=== PATIENT | male | born 1980 | race Caucasian/White ===

== ENCOUNTER 2017-04-12 23:40 | Emergency (ER) | payer OTHER ==
[~2017-04-12] VITALS: Wt 92.5 kg
[2017-04-13] MEDS ORDERED: metroNIDAZOLE 500 MG/NS (PMX) 100 ML IVPB ONE (01:30)
[2017-04-13] MEDS ORDERED: CEFTRIAXONE 1 GM/50 ML (PMX) 50 ML IVPB ONE (01:30)
[2017-04-13] MEDS ORDERED: SOD CHLORIDE 0.9% 1,000 ML IV ONE (01:30)
[2017-04-13] MEDS ORDERED: NPH10OT RIGHT EAR (01:44)
--- NOTE | 2017-04-13 01:48 | ERD ---
ER Documentation Chief Complaint Date/Time DATE: 04/13/17 TIME: 01:46 Chief Complaint Right ear pain x3 days HPI This 36-year-old male presents the emergency room for right ear pain 3 days. He is Q-tips on his ears and believes he may have gotten swimmer's ear from having a retained in the shower. He has no decreased hearing. No fevers. He is a healthy man otherwise. ROS All systems reviewed and are negative except as per history of present illness. Medications Home Meds Active Scripts Neomycin/Polymyxin/Hydrocort* (Cortisporin* Otic) 10 Ml Susp, 4 DROP RIGHT EAR QID for 7 Days, EA Prov:TUAN WADE DO 04/13/17 Allergies Allergies: Coded Allergies: No Known Allergy (Unverified , 04/13/17) PMhx/Soc Medical and Surgical Hx: pt denies Medical Hx, pt denies Surgical Hx History of Surgery: No Anesthesia Reaction: No Hx Neurological Disorder: No Hx Respiratory Disorders: No Hx Cardiac Disorders: No Hx Psychiatric Problems: No Hx Miscellaneous Medical Probl: No Hx Alcohol Use: No Hx Substance Use: No Hx Tobacco Use: No Physical Exam Vitals Vital Signs Date Time Temp Pulse Resp B/P Pulse Ox O2 Delivery O2 Flow Rate FiO2 04/13/17 00:09 98.0 74 20 126/75 96 Physical Exam Const: [] No distress Head: Atraumatic Eyes: Normal Conjunctiva ENT: Normal External Ears, Nose and Mouth. Left impediment within normal limits, right tympanic membrane with slight yellowish fluffy flaky material of the ear canal consistent with otitis externa. Results 24 hrs Current Medications Medications (Trade) Dose Ordered Sig/Marquise Route PRN Reason Start Time Stop Time Status Last Admin Dose Admin Sodium Chloride 1,000 ml @ 1,000 mls/hr Q1H ONCE IV 04/13/17 01:30 04/13/17 02:29 Ceftriaxone Sodium 50 ml @ 100 mls/hr ONCE ONCE IVPB 04/13/17 01:30 04/13/17 01:59 Metronidazole (Flagyl 500 Mg (Pmx)) 100 ml @ 100 mls/hr ONCE ONCE IVPB 04/13/17 01:30 04/13/17 02:29 Procedures/MDM Otitis externa. Discharging with Cortisporin otic drops and primary care follow -up. Departure Diagnosis: Primary Impression: Otitis externa of right ear Condition: Stable Patient Instructions: External Ear Infection (Adult) Additional Instructions: Call your primary care doctor TOMORROW for an appointment during the next 2-3 days.See the doctor sooner or return here if your condition worsens before your appointment time. TUAN WADE DO Apr 13, 2017 01:48
[2017-04-13] MEDS ORDERED: HYDR-906 PO (02:09)
== END 2017-04-13 02:19 | disposition home or self-care (01) ==
LOC: FTE 23:40
DX: H60.91 Unspecified otitis externa, right ear (principal)
CPT/HCPCS: 99283; J7030